=== PATIENT | male | born 1975 | race Caucasian/White ===

== ENCOUNTER 2017-08-20 12:24 | Emergency (ER) | payer OTHER ==
[~2017-08-20] VITALS: Ht 188 cm; Wt 95.2 kg
[2017-08-20] MEDS ORDERED: ADVIL200 MG PO (12:57)
[2017-08-20] MEDS ORDERED: NORCO 5-325 TA1 EACH PO (14:42)
[2017-08-20] MEDS ORDERED: CILOXAN5 ML OD (14:42)
[2017-08-20] MEDS ORDERED: AUGMENTIN 875-1 EACH PO (14:42)
== END 2017-08-20 14:59 | disposition home or self-care (01) ==
LOC: ED 12:24
DX: J01.90 Acute sinusitis, unspecified (principal); H10.33 Unspecified acute conjunctivitis, bilateral
CPT/HCPCS: 70486; 85025; 99284